=== PATIENT | female | born 1965 | race Two or more races ===

== ENCOUNTER 2017-04-30 07:26 | Emergency (ER) | payer MEDICARE ==
[~2017-04-30] VITALS: Ht 167.6 cm; Wt 68.0 kg
[~2017-04-30 07:26] MED LIST: ANTIBIOTIC; CYC10; CYCL-343 PO; IBU200; IBUP800T37 PO; NO ROUTINE MEDS
[2017-04-30] MEDS ORDERED: CALC600T63 PO (07:41)
[2017-04-30] MEDS ORDERED: DIPHTH/TETANUS/ACEL. PERTUSSIS IM ONLY ONE (07:45)
[2017-04-30] MEDS ORDERED: TETRACAIN/EPI/LIDO GEL 3ML SYR TP ONE (07:45)
--- NOTE | 2017-04-30 07:46 | ER Report ---
History and Physical Time Seen By MD: 07:39 Hx. of Stated Complaint: PT PRESENTS WITH KNOWN SEIZURE DISORDER. HAD A SEIZURE THIS AM AND FELL AGAINST BATHTUB . PT SUSTAINED A THRU AND THRU LAC, ABOVE R UPPER LIP , AND CONTUSION WITH SWELLING TO R CHEEK (CONNOR QUESADA MD) HPI/ROS CHIEF COMPLAINT:Seizure; facial injury HISTORY OF PRESENT ILLNESS: The patient is a 51-year-old female with past medical history significant for seizure disorder but not on any antiepileptic medication because she is "allergic to all of them". Patient's last seizure was approximately 1-2 months ago. She she did not medical attention at that time. Patient did sustain a laceration to the upper lip. Patient is also complaining of pain of the left upper extremity from the shoulder to the wrist. Complaining of some left foot pain. REVIEW OF SYSTEMS: Respiratory: No cough, no dyspnea. Cardiovascular: No chest pain, no palpitations. Gastrointestinal: No vomiting, no abdominal pain. Musculoskeletal: No back pain. (CONNOR QUESADA MD) Allergies: Coded Allergies: Penicillins (Verified Allergy, Unknown, HIVES, 04/30/17) Sulfa (Sulfonamide Antibiotics) (Verified Allergy, Unknown, 04/30/17) carbamazepine (Verified Allergy, Unknown, 04/30/17) divalproex sodium (Verified Allergy, Unknown, 04/30/17) felbamate (Verified Allergy, Unknown, 04/30/17) hydromorphone (Verified Allergy, Unknown, 04/30/17) lamotrigine (Verified Allergy, Unknown, 04/30/17) levetiracetam (Verified Allergy, Unknown, 04/30/17) morphine (Verified Allergy, Unknown, SEIZURES, 04/30/17) morphine sulfate (Verified Allergy, Unknown, 04/30/17) phenobarbital (Verified Allergy, Unknown, 04/30/17) phenytoin (Verified Allergy, Unknown, 04/30/17) tetracycline (Verified Allergy, Unknown, 04/30/17) topiramate (Verified Allergy, Unknown, 04/30/17) vancomycin (Verified Allergy, Unknown, 04/30/17) zonisamide (Verified Allergy, Unknown, 04/30/17) Uncoded Allergies: ALL SEIZURE MEDS (Allergy, Mild, 04/30/08) Home Meds Active Scripts Clindamycin Hcl (CLEOCIN HCL) 150 Mg Capsule, 150 MG PO TID, #21 CAPSULE Prov:DOMINGUEZ FERNANDEZ DO 04/30/17 Reported Medications Calcium Carbonate (CALCIUM) 600 Mg Tablet, 600 MG PO 04/30/17 Ibuprofen (IBUPROFEN) 800 Mg Tablet, 1 TAB PO Q6H 11/04/12 Discontinued Reported Medications Cyclobenzaprine Hcl (FLEXERIL) 10 Mg Tablet, 10 MG PO TID Y 11/04/12 Past Medical/Surgical History Patient has a past medical history of epilepsy, spurs in neck, arthritis, depression, anxiety. Patient has surgical history of occipital injections, hysterectomy, shoulder surgery. (CONNOR QUESADA MD) Hx Smoking: Yes (1/2 ppd) Smoking Status: Current: Every Day Smoker Hx Substance Use Disorder: No Hx Alcohol Use: No (CONNOR QUESADA MD) Constitutional Vital Sign - Last 24 Hours 04/30/17 04/30/17 04/30/17 04/30/17 07:32 07:35 07:56 08:22 Temp 98.9 Pulse 74 69 Resp 20 B/P (MAP) 110/72 (85) 110/72 109/64 (79) Pulse Ox 94 95 O2 Delivery Room Air 04/30/17 04/30/17 04/30/17 08:30 08:56 09:00 Pulse 68 B/P (MAP) 99/74 (82) 117/70 (86) Pulse Ox 98 (DOMINGUEZ FERNANDEZ DO) Physical Exam General Appearance: The patient is alert, has no immediate need for airway protection and no signs of toxicity. Eyes: Pupils equal and round no pallor or injection. No hyphema. ENT, Mouth: Mucous membranes are moist. Right-sided facial swelling. Dentition are all intact Respiratory: There are no retractions, lungs are clear to auscultation. Cardiovascular: Regular rate and rhythm. Gastrointestinal: Abdomen is soft and non tender, no masses, bowel sounds normal. Neurological: Postictal but becoming more awake and alert Skin: Warm and dry, no rashes. Laceration just to the right of the upper lip. Certainly 1.5 cm which will require primary repair Musculoskeletal: Neck is supple non tender. Extremities are nontender, nonswollen and have full range of motion. (CONNOR QUESADA MD) Medical Decision Making Data Points Result Diagram: 04/30/17 0800 Laboratory Hematology Test 04/30/17 08:00 Sodium Level 141 mmol/L (137-145) Potassium Level 4.1 mmol/L (3.5-5.0) Chloride Level 109 mmol/L (98-107) Carbon Dioxide Level 22 mmol/L (22-31) Blood Urea Nitrogen 12 mg/dl (7-18) Creatinine 0.90 mg/dl (0.52-1.04) Glomerular Filtration Rate Calc > 60.0 Random Glucose 93 mg/dl (75-110) Calcium Level 9.1 mg/dl (8.4-10.2) Chemistry Test 04/30/17 08:00 Glomerular Filtration Rate Calc > 60.0 Calcium Level 9.1 mg/dl (8.4-10.2) (DOMINGUEZ FERNANDEZ DO) EKG/Imaging Imaging No fx or dislocation of her imelda xrays. Ct of head is negative for bleed. Ct of cervical spine: arthritis C4--5 and c6-[address] with loss off curvature CT facial: TMJ arthropathy and facial contusion (DOMINGUEZ FERNANDEZ DO) ED Course/Re-evaluation Clinical Indication for ER IV: IV Access ED Course 04/30/2017 7:48:[address] the head, facial bones cervical spine. We will place let over the laceration. The laceration will require primary repair. Decision to Disposition Date: Apr 30, 2017 Decision to Disposition Time: 10:41 (CONNOR QUESADA MD) Clinical Indication for ER IV: IV Access ED Course Pt signed out to me by Dr. Quesada pending xray review and laceration repair. 04/30/2017 9:57:21 am Procedure: Laceration repair. Verbal consent was obtained from the patient. The 1.5cm laceration on the r upper lip above vertebral margin was anesthetized in the usual fashion 2% lido with epi 1ml. The wound was scrubbed, draped and explored to its base with a gloved finger. THe laceration was thru and thru due to a tooth. Interior and exterior was irrigated. Closed exterior with 6.0 ethlon interrupted sutures 4 total. There were no deep structures involved. The procedure was performed by myself. I did discuss closing the internal laceration but pt elected not to have it closed due to risk of infection due to oral cavity. will place on abx. 04/30/2017 10:11:46 am Pt looks like she is in pain but refusing all pain medications accept a dose of toradol. Will give toradol and clinda IV. Reviewed imaging. Pt is aware of her cervical and TMJ findings and states they are not new. Pt is sore but is comfortable going home. Has no new complaints. Decision to Disposition Date: Apr 30, 2017 Decision to Disposition Time: 10:13 (DOMINGUEZ FERNANDEZ DO) Depart Departure Latest Vital Signs Vital Signs Date Time Temp Pulse Resp B/P (MAP) Pulse Ox O2 Delivery O2 Flow Rate FiO2 04/30/17 09:00 117/70 (86) 04/30/17 08:56 68 98 04/30/17 07:35 98.9 20 Room Air (DOMINGUEZ FERNANDEZ DO) Impression: Primary Impression: Contusion of face Additional Impressions: Fall due to seizure Facial laceration Condition: Improved Disposition: HOME OR SELF-CARE New Scripts Clindamycin Hcl (CLEOCIN HCL) 150 Mg Capsule 150 MG PO TID, #21 CAPSULE Prov: DOMINGUEZ FERNANDEZ DO 04/30/17 Patient Instructions: Contusion in Adults (GEN), Facial Laceration (ED) Additional Instructions: You have 4 facial sutures which need to be removed in 7 days. You can take ibuprofen or tylenol as needed for pain. Your lip laceration is at risk of infection so we placed you on antibiotics. Clindamycin three times a day until finished. Follow up with your doctor. Return as needed Problem Qualifiers Primary Impression: Contusion of face Encounter type: initial encounter Qualified Codes: S00.83XA - Contusion of other part of head, initial encounter Additional Impressions: Facial laceration Encounter type: initial encounter Qualified Codes: S01.81XA - Laceration without foreign body of other part of head, initial encounter CONNOR QUESADA MD Apr 30, 2017 07:46 DOMINGUEZ FERNANDEZ DO Apr 30, 2017 10:01
--- NOTE | 2017-04-30 08:50 | RADIOLOGY IMAGING REPORT ---
FACILITY: [facility] - [place] PATIENT NAME: Ning Deshpande : 1965 MR: [id number] V: [id number] EXAM DATE: ORDERING PHYSICIAN: CONNOR CRAIG TECHNOLOGIST: Location: [facility] Patient: Ning Deshpande : 1965 Visit/Account:[id number] Date of Sevice: 04/30/2017 EXAMINATION: CT head without IV contrast HISTORY: Trauma. Seizure. COMPARISON: None. TECHNIQUE: Contiguous axial images were obtained from the skull base to the vertex without intraven ous contrast. Sagittal and coronal reformatted images are also submitted. One of the following dose optimization techniques was utilized in the performance of this exam: Autom ated exposure control; adjustment of the mA and/or kV according to the patient's size; or use of an i terative reconstruction technique. Specific details can be referenced in the facility's radiology C T exam operational policy. FINDINGS: Brain volume: Normal. Ventricles: Normal. Acute ischemic changes: None. Hemorrhage: No acute intracranial hemorrhage. Masses/edema: None. Hernandez-white: Negative. White matter: Normal. Vessels: Negative. Extra-axial: Negative. Calvarium/scalp: Negative. Skull base/visualized face: Soft tissue contusion of the right cheek. No acute fracture of the visua lized bones. Visualized sinuses/orbits: Negative. IMPRESSION: 1. No acute fracture, hemorrhage or intracranial mass lesion. No CT evidence of acute infarct. 2. Soft tissue contusion of the right cheek. Report Dictated By: Joanna Peralta MD at 04/30/2017 8:40 AM Report E-Signed By: Joanna Peralta MD at 04/30/2017 8:46 AM WSN:[id number]
--- NOTE | 2017-04-30 08:59 | RADIOLOGY IMAGING REPORT ---
FACILITY: [facility] PATIENT NAME: Ning Deshpande : 1965 MR: [id number] V: [id number] EXAM DATE: ORDERING PHYSICIAN: CONNOR CRAIG TECHNOLOGIST: Location: [facility] Patient: Ning Deshpande : 1965 Visit/Account:[id number] Date of Sevice: 04/30/2017 EXAMINATION: CT facial bones without IV contrast HISTORY: Trauma, seizure. COMPARISON: CT head from 04/30/2017. TECHNIQUE: Axial images were obtained from the superior aspect of the orbits through the inferior as pect of mandible. Coronal and sagittal reformatted images were obtained from the axial source data. N o IV contrast was administered. One of the following dose optimization techniques was utilized in the performance of this exam: Autom ated exposure control; adjustment of the mA and/or kV according to the patient's size; or use of an i terative reconstruction technique. Specific details can be referenced in the facility's radiology C T exam operational policy. FINDINGS: Soft Tissues: There is a soft tissue contusion of the right cheek. Mandible/TMJ: No acute fracture. There is severe joint space narrowing and bony spurring of both TMJs with a few small loose bodies in the left TMJ. Maxilla/pterygoid plates: Negative. Zygoma/zygomatic arches: Negative. Orbits: Negative. Nasal bones/nasal septum: Negative. Frontal bones: Negative. Sinuses: Negative. Visualized brain: Negative. IMPRESSION: 1. Soft tissue contusion of the right cheek without acute facial bone fracture. 2. Severe bilateral TMJ arthropathy with a few small loose bodies in the left TMJ. Report Dictated By: Joanna Peralta MD at 04/30/2017 8:46 AM Report E-Signed By: Joanna Peralta MD at 04/30/2017 8:56 AM WSN:[id number]
--- NOTE | 2017-04-30 09:13 | RADIOLOGY IMAGING REPORT ---
[place] [facility] [place]: Ning Deshpande : 1965 MR: [id number] V: [id number] EXAM DATE: ORDERING PHYSICIAN: CONNOR CRAIG TECHNOLOGIST: Location: [facility] Patient: Ning Deshpande : 1965 Visit/Account:[id number] Date of Sevice: 04/30/2017 EXAMINATION: CT cervical spine without IV contrast HISTORY: Trauma, seizure. COMPARISON: Cervical spine radiographs from 02/19/2016. TECHNIQUE: Axial images were obtained from the skull base through the upper thoracic spine without I V contrast administration. Coronal and sagittal reformatted images were obtained from the axial [facility] e data. One of the following dose optimization techniques was utilized in the performance of this exam: Autom ated exposure control; adjustment of the mA and/or kV according to the patient's size; or use of an i terative reconstruction technique. Specific details can be referenced in the facility's radiology C T exam operational policy. FINDINGS: Alignment: Straightening of the cervical spine without focal listhesis. Cranio-cervical junction: Negative. Vertebral bodies: Negative. Posterior elements: Negative. Hardware: None. Disc spaces: Mild disc space narrowing and endplate sclerosis from C4-5 through C6-7. Soft tissues: There is a soft tissue contusion of the right cheek partly visualized. Visualized upper chest: Negative. IMPRESSION: 1. No acute fracture of the cervical spine. 2. Mild degenerative disc disease from C4-5 through C6-7. 3. Straightening of the cervical spine could be positional, due to muscle spasm or a cervical collar. Report Dictated By: Joanna Peralta MD at 04/30/2017 9:06 AM Report E-Signed By: Joanna Peralta MD at 04/30/2017 9:08 AM WSN:[id number]
--- NOTE | 2017-04-30 09:46 | RADIOLOGY IMAGING REPORT ---
FACILITY: [facility] - [place] PATIENT NAME: Ning Deshpande : 1965 MR: [id number] V: [id number] EXAM DATE: ORDERING PHYSICIAN: CONNOR CRAIG TECHNOLOGIST: Location: [facility] [place] Patient: Ning Deshpande : 1965 Visit/Account:[id number] Date of Sevice: 04/30/2017 Two views left shoulder Indication: Fall Comparison: Unavailable Findings: Osseous alignment appears anatomic. No fracture or acute destructive osseous process. Minimal AC joselito int arthrosis. Limited views of the left upper lung zone are unremarkable. IMPRESSION: 1. No acute osseous abnormality left shoulder. Report Dictated By: Elier Potts MD at 04/30/2017 9:40 AM Report E-Signed By: Elier Potts MD at 04/30/2017 9:41 AM WSN:[email or web address]
--- NOTE | 2017-04-30 09:46 | RADIOLOGY IMAGING REPORT ---
FACILITY: [facility] PATIENT NAME: Ning Deshpande : 1965 MR: [id number] V: [id number] EXAM DATE: ORDERING PHYSICIAN: CONNOR CRAIG TECHNOLOGIST: Location: [facility] Patient: Ning Deshpande : 1965 Visit/Account:[id number] Date of Sevice: 04/30/2017 2 views left elbow Indication: Fall Comparison: None Available Findings: Osseous alignment is anatomic. No fracture or acute destructive osseous process. No effusion. IMPRESSION: 1. No acute osseous abnormality of the left elbow. Report Dictated By: Elier Potts MD at 04/30/2017 9:42 AM Report E-Signed By: Elier Potts MD at 04/30/2017 9:42 AM WSN:[email or web address]
--- NOTE | 2017-04-30 09:47 | RADIOLOGY IMAGING REPORT ---
FACILITY: [facility] - [place] PATIENT NAME: Ning Deshpande : 1965 MR: [id number] V: [id number] EXAM DATE: ORDERING PHYSICIAN: CONNOR CRAIG TECHNOLOGIST: Location: [facility] Patient: Ning Deshpande : 1965 Visit/Account:[id number] Date of Sevice: 04/30/2017 Left forearm Indication: Fall Comparison: None available Findings: Two views left forearm are submitted. Radius and ulna appear intact. No fracture or destructive oss eous process. Alignment appears anatomic. IMPRESSION: 1.No acute osseous abnormality left forearm Report Dictated By: Elier Potts MD at 04/30/2017 9:42 AM Report E-Signed By: Elier Potts MD at 04/30/2017 9:43 AM WSN:[email or web address]
--- NOTE | 2017-04-30 09:49 | RADIOLOGY IMAGING REPORT ---
FACILITY: [facility] PATIENT NAME: Ning Deshpande : 1965 MR: [id number] V: [id number] EXAM DATE: ORDERING PHYSICIAN: CONNOR CRAIG TECHNOLOGIST: Location: [facility] [place] Patient: Ning Deshpande : 1965 Visit/Account:[id number] Date of Sevice: 04/30/2017 Two views left wrist Indication: Fall Comparison: None Available. Findings: Distal radius and ulna are intact. Radiocarpal and intercarpal articulations appear within normal li mits. No fracture or destructive osseous process. IMPRESSION: 1. No acute osseous abnormality left wrist. Report Dictated By: Elier Potts MD at 04/30/2017 9:43 AM Report E-Signed By: Elier Potts MD at 04/30/2017 9:43 AM WSN:[email or web address]
--- NOTE | 2017-04-30 09:50 | RADIOLOGY IMAGING REPORT ---
FACILITY: [facility] PATIENT NAME: Ning Deshpande : 1965 MR: [id number] V: [id number] EXAM DATE: ORDERING PHYSICIAN: CONNOR CRAIG TECHNOLOGIST: Location: [facility] Patient: Ning Deshpande : 1965 Visit/Account:[id number] Date of Sevice: 04/30/2017 3 views left hand Indication: Seizure with fall Comparison: None Available. Findings: Distal radius and ulna appear intact. Radiocarpal and intercarpal articulations are within normal li mits. No evidence of acute fracture or destructive osseous process. No erosive articular change. IMPRESSION: 1.No acute osseous abnormality of the left hand Report Dictated By: Elier Potts MD at 04/30/2017 9:43 AM Report E-Signed By: Elier Potts MD at 04/30/2017 9:44 AM WSN:[email or web address]
--- NOTE | 2017-04-30 09:50 | RADIOLOGY IMAGING REPORT ---
FACILITY: [facility] [place] PATIENT NAME: Ning Deshpande : 1965 MR: [id number] V: [id number] EXAM DATE: ORDERING PHYSICIAN: CONNOR CRAIG TECHNOLOGIST: Location: [facility] Patient: Ning Deshpande : 1965 Visit/Account:[id number] Date of Sevice: 04/30/2017 FOOT 2 VIEW RIGHT Indication: Fall Comparison: None Available Findings: Two views of the right foot were obtained. Bony alignment appears anatomic. No fracture or acute destructive osseous process. No foreign body. IMPRESSION: 1.No acute osseous abnormality of the right foot Report Dictated By: Elier Potts MD at 04/30/2017 9:44 AM Report E-Signed By: Elier Potts MD at 04/30/2017 9:45 AM WSN:[email or web address]
[2017-04-30] MEDS ORDERED: CLINDAMYCIN(*) 600 MG/NS 50 ML 50 ML IVPB ONE (10:05)
[2017-04-30] MEDS ORDERED: KETOROLAC 30 MG/ML VIAL IVP ONE (10:10)
[2017-04-30] MEDS ORDERED: CLIN-60 PO (10:19)
[2017-04-30 10:30] VITALS: BP 109/71
== END 2017-04-30 10:48 | disposition home or self-care (01) ==
LOC: ER 07:43
DX: S01.511A Laceration without foreign body of lip, initial encounter (principal); S00.83XA Contusion of other part of head, initial encounter; R56.9 Unspecified convulsions
CPT/HCPCS: 12011; 70450; 70486; 72125; 73030; 73070; 73090; 73100; 73130; 73620; 90471; 90715; 96365; 96375; 99284; J1885; J3490; 82310; 82374; 82435; 82565; 82947; 84132; 84295; 84520

== ENCOUNTER → 2017-05-12 | Outpatient (CLI) | payer MEDICARE ==
[~2017-05-12] MED LIST changes: +CALC600T63 PO; +CLIN-60 PO
--- NOTE | 2017-05-12 11:08 | RADIOLOGY IMAGING REPORT ---
FACILITY: [facility] [place]IENT NAME: Ning Deshpande : 1965 MR: [id number] V: [id number] EXAM DATE: ORDERING PHYSICIAN: MITZY FAGAN TECHNOLOGIST: Location: [facility] [place] Patient: Ning Deshpande : 1965 Visit/Account:[id number] Date of Sevice: 05/12/2017 C SPINE W/O CONTRAST COMPARISON: None Additional pertinent history: Neck pain with cervicalgia Technique: Multiplanar multisequence cervical spine MRI was performed without gadolinium enhancement. FINDINGS: Vertebral body height and alignment: Reversal of normal cervical lordosis centered at C4-C5. Vertebral marrow signal: Type I degenerative endplate changes at C5-C6. Vertebral bodies: Anteriorly and posteriorly directed osteophytes in the lower cervical spine. Cervical spinal cord signal, craniocervical junction and visualized posterior fossa: Negative Surrounding soft tissues: Negative Inspection of the disc spaces reveal the following: C1-C2: Negative C2-C3: Minimal circumferential disc bulging with facet hypertrophic changes. No significant canal or neural foraminal narrowing. C3-C4: Posterior broad-based disc protrusion with facet hypertrophic changes. Moderate bilateral yari ral foraminal narrowing with mild canal stenosis. C4-C5: Posterior broad-based disc protrusion with facet and uncovertebral degenerative changes. Rachel re bilateral neural foraminal narrowing. Moderate canal stenosis. C5-C6: Posterior broad-based disc protrusion with a superimposed right neural foraminal disc extrusio n. Severe right-sided neural foraminal narrowing. Moderate left-sided neural foraminal narrowing. Moderate canal stenosis. C6-C7: Posterior broad-based disc protrusion with a superimposed left neural foraminal disc extrusion . Moderate left-sided neural foraminal narrowing. Mild right-sided neural foraminal narrowing. Mil d to moderate canal stenosis. C7-T1: Negative Impression: 1. Multilevel spondylitic change as discussed above. 2. Findings of moderate canal stenosis at C5-C6 and C4-C5 with moderate to severe bilateral neural f oraminal narrowing at both of these levels as well. Report Dictated By: Williams Silver MD at 05/12/2017 10:55 AM Report E-Signed By: Williams Silver MD at 05/12/2017 11:02 AM WSN:[id number]
== END ==
LOC: MRI 07:46
PROVIDERS: ATTEND Family Medicine
DX: M50.223 Other cervical disc displacement at C6-C7 level (principal); M48.02 Spinal stenosis, cervical region; M47.892 Other spondylosis, cervical region
CPT/HCPCS: 72141

== ENCOUNTER 2018-08-25 16:41 | Emergency (ER) | payer MEDICARE ==
--- NOTE | 2018-08-25 16:48 | ER Report ---
History and Physical Time Seen By MD: 17:08 HPI/ROS CHIEF COMPLAINT: Chest pain HISTORY OF PRESENT ILLNESS: This is a 52-year-old female presents to emergency department for chest pain. Patient states that around 3:10 this afternoon, she just woke up from a nap developed midsternal to left-sided anterior chest pain. Did radiate into her left arm. No nausea or vomiting. No diaphoresis. The pain did radiate through into her back as well. The pain has resolved upon arrival however does seem to increase her discomfort whenever she is moving. She has been seen and evaluated for this before, no concerning findings on previous visits. She also has a history of seizures, she does not take medications for it other than CBD oil. She denies injuries. She does smoke, unsure if she has elevated cholesterol. Patient also states that she had a similar occurrence about one week ago with the pain lasted approximately 2 hours, she did not come in for evaluation at that time. REVIEW OF SYSTEMS: Constitutional: No fever, no chills. Eyes: No discharge. ENT: No sore throat. Cardiovascular: As above. Respiratory: No cough, no shortness of breath. Gastrointestinal: No abdominal pain, no vomiting. Genitourinary: No hematuria. Musculoskeletal: No back pain. Skin: No rashes. Neurological: No headache. Allergies: Coded Allergies: Penicillins (Verified Allergy, Unknown, HIVES, 04/30/17) Sulfa (Sulfonamide Antibiotics) (Verified Allergy, Unknown, 04/30/17) carbamazepine (Verified Allergy, Unknown, 04/30/17) divalproex sodium (Verified Allergy, Unknown, 04/30/17) felbamate (Verified Allergy, Unknown, 04/30/17) hydromorphone (Verified Allergy, Unknown, 04/30/17) lamotrigine (Verified Allergy, Unknown, 04/30/17) levetiracetam (Verified Allergy, Unknown, 04/30/17) morphine (Verified Allergy, Unknown, SEIZURES, 04/30/17) morphine sulfate (Verified Allergy, Unknown, 04/30/17) phenobarbital (Verified Allergy, Unknown, 04/30/17) phenytoin (Verified Allergy, Unknown, 04/30/17) sulfamethoxazole (Verified Allergy, Unknown, 08/25/18) tetracycline (Verified Allergy, Unknown, 04/30/17) topiramate (Verified Allergy, Unknown, 04/30/17) trimethoprim (Verified Allergy, Unknown, 08/25/18) vancomycin (Verified Allergy, Unknown, 04/30/17) zonisamide (Verified Allergy, Unknown, 04/30/17) Uncoded Allergies: ALL SEIZURE MEDS (Allergy, Mild, 04/30/08) Home Meds Reported Medications Calcium Carbonate (CALCIUM) 600 Mg Tablet, 600 MG PO 04/30/17 Discontinued Reported Medications Ibuprofen (IBUPROFEN) 800 Mg Tablet, 1 TAB PO Q6H 11/04/12 Discontinued Scripts Clindamycin Hcl (CLEOCIN HCL) 150 Mg Capsule, 150 MG PO TID, #21 CAPSULE Prov:DOMINGUEZ FERNANDEZ V DO 04/30/17 Past Medical/Surgical History The patient has a past medical and surgical history of epilepsy, bone spurs and neck, arthritis and neck, wears glasses, history of depression, previous suicide attempts, occipital injections for headaches, hysterectomy, shoulder surgery. Reviewed Nurses Notes: Yes Hx Smoking: Yes (1/2 ppd) Smoking Status: Current: Every Day Smoker Hx Substance Use Disorder: No Hx Alcohol Use: No Constitutional Vital Sign - Last 24 Hours 08/25/18 08/25/18 08/25/18 08/25/18 16:44 16:48 16:56 17:00 Temp 97.4 Pulse 58 56 Resp 20 8 B/P (MAP) 121/71 (88) 121/71 113/75 (88) Pulse Ox 97 92 O2 Delivery Room Air 08/25/18 08/25/18 08/25/18 08/25/18 17:11 17:26 17:30 17:56 Pulse 73 57 64 Resp 10 16 12 B/P (MAP) 123/82 (96) Pulse Ox 97 93 94 08/25/18 08/25/18 08/25/18 08/25/18 18:00 18:11 18:26 18:31 Pulse 54 63 55 Resp 18 18 15 B/P (MAP) 109/81 (90) Pulse Ox 93 92 92 08/25/18 08/25/18 08/25/18 08/25/18 18:46 19:00 19:01 19:16 Pulse 51 48 53 Resp 11 18 15 B/P (MAP) 125/76 (92) Pulse Ox 95 94 93 5/28/08/25/18 08/25/18 08/25/18 19:30 19:31 19:46 20:00 Pulse 52 50 Resp 12 15 B/P (MAP) 117/71 (86) 114/80 (91) Pulse Ox 94 95 08/25/18 08/25/18 08/25/18 08/25/18 20:01 20:06 20:21 20:30 Pulse 46 49 52 Resp 13 20 12 B/P (MAP) 134/79 (97) Pulse Ox 95 95 95 08/25/18 08/25/18 08/25/18 08/25/18 20:36 20:51 21:00 21:06 Pulse 49 52 55 Resp 14 19 10 B/P (MAP) 116/78 (91) Pulse Ox 96 95 94 08/25/18 08/25/18 08/25/18 08/25/18 21:21 21:30 21:36 21:51 Pulse 61 61 53 Resp 17 11 9 B/P (MAP) 110/65 (80) Pulse Ox 95 91 97 08/25/18 08/25/18 08/25/18 08/25/18 21:56 22:00 22:11 22:26 Pulse 57 54 51 Resp 36 21 36 B/P (MAP) 123/74 (90) Pulse Ox 96 94 95 08/25/18 08/25/18 08/25/18 08/25/18 22:30 22:41 22:56 23:00 Pulse ??? 64 Resp 21 B/P (MAP) 135/84 (101) 117/63 (81) Pulse Ox 94 08/25/18 08/25/18 08/25/18 08/25/18 23:11 23:26 23:30 23:41 Pulse 58 54 62 Resp 16 0 21 B/P (MAP) 133/82 (99) Pulse Ox 95 95 90 08/25/18 08/26/18 08/26/18 23:46 00:00 00:01 Pulse 55 68 Resp 14 21 B/P (MAP) 127/85 (99) Pulse Ox 96 93 Intake and Output 08/25/18 08/25/18 08/26/18 15:00 23:00 07:00 Intake Total 709.6 ml Balance 709.6 ml Physical Exam General Appearance: The patient is alert, has no immediate need for airway protection and no signs of toxicity. Eyes: Pupils equal and round no pallor or injection. ENT, Mouth: Mucous membranes are moist. Respiratory: There are no retractions, lungs are clear to auscultation. Cardiovascular: Regular rate and rhythm. No murmurs, clicks or rubs. Gastrointestinal: Abdomen is soft and non tender, no masses, bowel sounds normal. Neurological: Alert and oriented 4. Moving all extremities. Following all commands. No focal neuro deficits per Skin: Warm and dry, no rashes. Musculoskeletal: Neck is supple non tender. Reproducible left anterior chest pain with palpation, no crepitus or deformities. Extremities are nontender, nonswollen and have full range of motion. DIFFERENTIAL DIAGNOSIS: After history and physical exam differential diagnosis was considered for chest pain including but not limited to myocardial ischemia, pericarditis pulmonary embolus, chest wall pain, pleural inflammation and pulmonary infectious causes. Medical Decision Making Data Points Result Diagram: 08/25/18 1657 08/25/18 1657 Laboratory Hematology Test 08/25/18 16:57 08/25/18 21:50 Red Blood Count 4.77 M/uL (4.17-5.56) Mean Corpuscular Volume 87.8 fL (80.0-96.0) Mean Corpuscular Hemoglobin 30.0 pg (26.0-33.0) Mean Corpuscular Hemoglobin Concent 34.2 g/dL (32.0-36.0) Red Cell Distribution Width 13.5 % (11.5-14.5) Mean Platelet Volume 7.8 fL (7.2-11.1) Neutrophils (%) (Auto) 54.3 % (39.4-72.5) Lymphocytes (%) (Auto) 34.7 % (17.6-49.6) Monocytes (%) (Auto) 8.3 % (4.1-12.4) Eosinophils (%) (Auto) 2.2 % (0.4-6.7) Basophils (%) (Auto) 0.5 % (0.3-1.4) Nucleated RBC Relative Count (auto) 0.0 /100WBC Neutrophils # (Auto) 3.8 K/uL (2.0-7.4) Lymphocytes # (Auto) 2.4 K/uL (1.3-3.6) Monocytes # (Auto) 0.6 K/uL (0.3-1.0) Eosinophils # (Auto) 0.2 K/uL (0.0-0.5) Basophils # (Auto) 0.0 K/uL (0.0-0.1) Nucleated RBC Absolute Count (auto) 0.00 K/uL D-Dimer Quantitative (PE/DVT) < 0.27 ug/ml (0-0.50) Sodium Level 141 mmol/L (137-145) Potassium Level 3.8 mmol/L (3.5-5.0) Chloride Level 108 mmol/L (98-107) Carbon Dioxide Level 26 mmol/L (22-31) Blood Urea Nitrogen 11 mg/dl (7-18) Creatinine 1.10 mg/dl (0.52-1.04) Glomerular Filtration Rate Calc 52.4 Random Glucose 92 mg/dl (75-110) Calcium Level 9.2 mg/dl (8.4-10.2) Total Bilirubin < 0.1 mg/dl (0.2-1.3) Aspartate Amino Transf (AST/SGOT) 26 U/L (0-35) Alanine Aminotransferase (ALT/SGPT) 22 U/L (0-56) Alkaline Phosphatase 96 U/L (0-126) Total Protein 7.1 g/dl (6.3-8.2) Albumin 4.0 g/dl (3.5-5.0) Troponin I 0.152 ng/ml Chemistry Test 08/25/18 16:57 08/25/18 21:50 White Blood Count 7.0 k/uL (4.5-11.0) Red Blood Count 4.77 M/uL (4.17-5.56) Hemoglobin 14.3 g/dL (12.0-16.0) Hematocrit 41.8 % (34.0-47.0) Mean Corpuscular Volume 87.8 fL (80.0-96.0) Mean Corpuscular Hemoglobin 30.0 pg (26.0-33.0) Mean Corpuscular Hemoglobin Concent 34.2 g/dL (32.0-36.0) Red Cell Distribution Width 13.5 % (11.5-14.5) Platelet Count 264 K/uL (150-450) Mean Platelet Volume 7.8 fL (7.2-11.1) Neutrophils (%) (Auto) 54.3 % (39.4-72.5) Lymphocytes (%) (Auto) 34.7 % (17.6-49.6) Monocytes (%) (Auto) 8.3 % (4.1-12.4) Eosinophils (%) (Auto) 2.2 % (0.4-6.7) Basophils (%) (Auto) 0.5 % (0.3-1.4) Nucleated RBC Relative Count (auto) 0.0 /100WBC Neutrophils # (Auto) 3.8 K/uL (2.0-7.4) Lymphocytes # (Auto) 2.4 K/uL (1.3-3.6) Monocytes # (Auto) 0.6 K/uL (0.3-1.0) Eosinophils # (Auto) 0.2 K/uL (0.0-0.5) Basophils # (Auto) 0.0 K/uL (0.0-0.1) Nucleated RBC Absolute Count (auto) 0.00 K/uL D-Dimer Quantitative (PE/DVT) < 0.27 ug/ml (0-0.50) Glomerular Filtration Rate Calc 52.4 Calcium Level 9.2 mg/dl (8.4-10.2) Total Bilirubin < 0.1 mg/dl (0.2-1.3) Aspartate Amino Transf (AST/SGOT) 26 U/L (0-35) Alanine Aminotransferase (ALT/SGPT) 22 U/L (0-56) Alkaline Phosphatase 96 U/L (0-126) Total Protein 7.1 g/dl (6.3-8.2) Albumin 4.0 g/dl (3.5-5.0) Troponin I 0.152 ng/ml Coagulation Test 08/25/18 16:57 D-Dimer Quantitative (PE/DVT) < 0.27 ug/ml EKG/Imaging EKG Interpretation 12 lead EKG: Time of EKG 1644. Rhythm: Normal sinus rhythm, ventricular rate 65 bpm. Allen: normal QRS: normal ST segments: No ST depression or elevation identified, inverted T waves noted in V1 and V2. When compared to the 01/24/2017 EKG, previous EKG showing inverted T waves in V1 and V2, current EKG showing normal flexion of V1 and V2. 12 lead EKG: Time of EKG 2245. Rhythm: Sinus bradycardia, ventricular rate 50 bpm. Allen: normal QRS: normal ST segments: No ST depression or elevation identified. No changes from the earlier EKG. Imaging PATIENT NAME: Ning Deshpande : 1965 MR: [id number] V: [id number] EXAM DATE: ORDERING PHYSICIAN: LONNY DELUNA TECHNOLOGIST: Location: [facility] [place] Patient: Ning Deshpande : 1965 Visit/Account:[id number] Date of Sevice: 08/25/2018 Exam type: CHEST PA LAT History: Chest pain x1 week with tingling of left arm Comparison: January 24, 2017. Findings: The lungs are free of acute effusions infiltrates or edema. There is a vague area of increased density projecting over the right pulmonary apex. This may represent superimposed shadows from the overlapping ribs although pulmonary nodule not totally excluded. The cardiac silhouette is normal in size. Visualized bones are unremarkable for age IMPRESSION: 1. No evidence of acute pulmonary consolidation Small vague area of increased density projects over the right pulmonary apex. This may represent a superimposed shadow from the overlapping ribs although pulmonary nodule not totally excluded. Depending upon the clinical presentation a short-term follow-up chest or chest CT may be helpful Report Dictated By: Mere Franklin MD at 08/25/2018 6:05 PM Report E-Signed By: Mere Franklin MD at 08/25/2018 6:07 PM WSN:[email or web address] ED Course/Re-evaluation Clinical Indication for ER IV: Hydration, IV Access ED Course The patient was admitted to room. A history and physical were obtained. Differential diagnoses were considered. An IV was started. A CBC, CMP were obtained. Laboratory studies unremarkable, negative troponin. EKG showing normal sinus rhythm, noted to have inverted T waves on V1 and V2, similar to the previous EKG also noted on the current EKG is positive deflection T waves whereas in the previous EKGs on file she had a negative deflexion T-wave otherwise unremarkable. Negative two-view chest x-ray. The 3rd troponin came back positive at 0.152, I did update the patient as noted below. I did [place] [facility] [place] in the [place], patient was given heparin bolus and started on a heparin drip. 08/25/2018 6:41:11 pm I did review the negative laboratory studies, negative troponin and negative d-dimer with the patient as well as the negative chest x- ray. I did recommend a repeat troponin, patient is agreeable. 08/25/2018 8:41:03 pm Repeat tests troponin did increase to 0.084, in the indeterminate range, I did review this with the patient I did recommend a repeat in another hour, patient is agreeable. Patient continues to remain pain-free. 08/25/2018 10:35:39 pm the repeat troponin did come back elevated again at 0.152 the patient was updated, I did tell her with the elevated troponin, that an NSTEMI is likely and transferring to an acute care hospital that has interventional cardiology as recommended, patient was agreeable. [facility] [place] was contacted. 08/25/2018 10:48:01 pm I did speak with [place] [facility] [place] Decision to Disposition Date: August 25, 2018 Decision to Disposition Time: 22:47 Depart Departure Latest Vital Signs Vital Signs Date Time Temp Pulse Resp B/P (MAP) Pulse Ox O2 Delivery O2 Flow Rate FiO2 08/26/18 00:01 68 21 93 08/26/18 00:00 127/85 (99) 08/25/18 16:48 97.4 Room Air Impression: Primary Impression: Non-STEMI (non-ST elevated myocardial infarction) Additional Impression: Elevated troponin Condition: Improved Disposition: XFER [place] [place] [place] Problem Qualifiers LONNY DELUNA SCHOOL OFFICE ASSISTANT-BC August 25, 2018 16:48
[2018-08-25] MEDS ORDERED: ASPIRIN 81 MG CHEW CHEW ONE (17:00)
[2018-08-25 17:12] LABS: PLATELET COUNT, AUTOMATED 264 K/uL (150-450)
--- NOTE | 2018-08-25 18:11 | RADIOLOGY IMAGING REPORT ---
[place] [facility] [place]IENT NAME: Ning Deshpande : 1965 MR: [id number] V: [id number] EXAM DATE: ORDERING PHYSICIAN: LONNY DELUNA TECHNOLOGIST: Location: [facility] Patient: Ning Deshpande : 1965 Visit/Account:[id number] Date of Sevice: 08/25/2018 Exam type: CHEST PA LAT History: Chest pain x1 week with tingling of left arm Comparison: January 24, 2017. Findings: The lungs are free of acute effusions infiltrates or edema. There is a vague area of increased densi ty projecting over the right pulmonary apex. This may represent superimposed shadows from the overla pping ribs although pulmonary nodule not totally excluded. The cardiac silhouette is normal in size. Visualized bones are unremarkable for age IMPRESSION: 1. No evidence of acute pulmonary consolidation Small vague area of increased density projects over the right pulmonary apex. This may represent a s uperimposed shadow from the overlapping ribs although pulmonary nodule not totally excluded. Dependi ng upon the clinical presentation a short-term follow-up chest or chest CT may be helpful Report Dictated By: Mere Franklin MD at 08/25/2018 6:05 PM Report E-Signed By: Mere Franklin MD at 08/25/2018 6:07 PM WSN:[email or web address]
--- NOTE | 2018-08-25 18:22 | EKG ---
FACILITY: [facility] PATIENT NAME: BAILEE HOLCOMB : [id number] MR: [id number] V: [id number] EXAM DATE: ORDERING PHYSICIAN: LONNY DELUNA TECHNOLOGIST: ALESSNADRA Galvan Reason : CP Blood Pressure : / mmHG Vent. Rate : 065 BPM Atrial Rate : 065 BPM P-R Int : 120 ms QRS Dur : 086 ms QT Int : 416 ms P-R-T Axes : 078 080 076 degrees QTc Int : 432 ms Normal sinus rhythm Normal ECG When compared with ECG of 24-JAN-2017 22:05, No significant change was found Confirmed by DEACON ORELLANA ([id number]) on 08/25/2018 10:29:48 PM Referred By: LORENZO Confirmed By:DEACON ORELLANA
[2018-08-25] MEDS ORDERED: HEPARIN SOD/D5W 25000/250 ML 250 ML IV ONE ×3 (22:51→23:20)
[2018-08-25] MEDS ORDERED: HEPARIN (PORC) 5000 UN/ML VIAL IVP ONE (22:55)
--- NOTE | 2018-08-25 23:29 | EKG ---
FACILITY: [facility] - [place], [place] PATIENT NAME: BAILEE HOLCOMB : [id number] MR: [id number] V: [id number] EXAM DATE: ORDERING PHYSICIAN: LONNY DELUNA TECHNOLOGIST: DEBBIE Galvan Reason : REPEAT EKG Blood Pressure : / mmHG Vent. Rate : 050 BPM Atrial Rate : 050 BPM P-R Int : 126 ms QRS Dur : 086 ms QT Int : 414 ms P-R-T Axes : 082 078 076 degrees QTc Int : 377 ms Sinus bradycardia No acute appearing changes When compared with ECG of 25-AUG-2018 16:44, No significant change was found Confirmed by OLMAN VASQUEZ ([id number]) on 08/26/2018 10:46:23 AM Referred By: Confirmed By:OLMAN VASQUEZ
[2018-08-26] VITALS: BP 127/85
[2018-08-26] MEDS ORDERED: NS(*) 0.9% 1000 ML BAG 1,000 ML IV ONE (01:30)
== END 2018-08-26 00:32 | disposition short-term general hospital (02) ==
LOC: ER 17:02
DX: I21.4 Non-ST elevation (NSTEMI) myocardial infarction (principal); R79.89 Other specified abnormal findings of blood chemistry
CPT/HCPCS: 71046; 84484; 85025; 85379; 93005; 96361; 96365; 96366; 96375; 99285; A9270; J1644; J7030; 82040; 82247; 82310; 82374; 82435; 82565; 82947; 84075; 84132; 84155; 84295; 84450; 84460; 84520

== ENCOUNTER → 2018-08-26 | Outpatient (CLI) | payer MEDICARE | LOC: AMB 00:20 | PROVIDERS: ATTEND Nurse Practitioner | DX: I21.4 Non-ST elevation (NSTEMI) myocardial infarction (principal) | CPT/HCPCS: A0425; A0426 ==

== ENCOUNTER 2018-09-14 05:23 | Emergency (ER) | payer MEDICARE ==
[2018-09-14] MEDS ORDERED: CALC-476 PO (05:55)
[2018-09-14] MEDS ORDERED: LISI5TAB25 PO (05:55)
[2018-09-14] MEDS ORDERED: ALBU8.5H IH (05:55)
[2018-09-14] MEDS ORDERED: INUL1TAB (05:55)
[2018-09-14] MEDS ORDERED: SENN-192 PO (05:55)
[2018-09-14] MEDS ORDERED: ATOR40TA24 PO (05:55)
[2018-09-14] MEDS ORDERED: POTA99TA6 PO (05:55)
[2018-09-14] MEDS ORDERED: TICA90TA PO (05:55)
[2018-09-14] MEDS ORDERED: NITR0.4T3 SL (05:55)
[2018-09-14] MEDS ORDERED: MV,C400T (05:55)
[2018-09-14] MEDS ORDERED: ASPI81TA94 PO (05:55)
--- NOTE | 2018-09-14 06:04 | ER Report ---
History and Physical Time Seen By MD: 06:03 Hx. of Stated Complaint: ABD. PAIN AND BACK PAIN, HASN'T HAD A BOWEL MOVEMENT SINCE FRI.; STATES SHE TOOK A SUPPOSITORY AND HAS NOT HAD RELIFE (LUIS ENRIQUE VENTURA MD) HPI/ROS CHIEF COMPLAINT: constipation HISTORY OF PRESENT ILLNESS: This is a 52 year old female. She has not had a bowel movement for the last 5 days, since last Friday. She tried a suppository at home, with only 3 small pieces of stool passing. She is having abdominal fullness and discomfort, pain worse in the epigastric area. Had an episode of emesis at home. Did try drinking prune juice and apple juice yesterday, without relief. Never had a problem like this in the past, has had mild episodes of constipation in the past. No blood in stools or dark black stools. No trouble with urination. No fevers or chills. (LUIS ENRIQUE VENTURA MD) Allergies: Coded Allergies: Penicillins (Verified Allergy, Unknown, HIVES, 04/30/17) Sulfa (Sulfonamide Antibiotics) (Verified Allergy, Unknown, 04/30/17) carbamazepine (Verified Allergy, Unknown, 04/30/17) divalproex sodium (Verified Allergy, Unknown, 04/30/17) felbamate (Verified Allergy, Unknown, 04/30/17) hydromorphone (Verified Allergy, Unknown, 04/30/17) lamotrigine (Verified Allergy, Unknown, 04/30/17) levetiracetam (Verified Allergy, Unknown, 04/30/17) morphine (Verified Allergy, Unknown, SEIZURES, 04/30/17) morphine sulfate (Verified Allergy, Unknown, 04/30/17) phenobarbital (Verified Allergy, Unknown, 04/30/17) phenytoin (Verified Allergy, Unknown, 04/30/17) sulfamethoxazole (Verified Allergy, Unknown, 08/25/18) tetracycline (Verified Allergy, Unknown, 04/30/17) topiramate (Verified Allergy, Unknown, 04/30/17) trimethoprim (Verified Allergy, Unknown, 08/25/18) vancomycin (Verified Allergy, Unknown, 04/30/17) zonisamide (Verified Allergy, Unknown, 04/30/17) Uncoded Allergies: ALL SEIZURE MEDS (Allergy, Mild, 04/30/08) Home Meds Active Scripts Polyethylene Glycol 3350 (MIRALAX) 17 Gm Powd.pack, 17 GM PO BID for 7 Days, #60 PKT Prov:BEVERLY DURAN MD 09/14/18 Reported Medications Mv,Ca,Min/Fa/Herbal Comp #223 (ESTROVEN MOOD & MEMORY CAPLET) 400 Mcg Tablet 09/14/18 Ca/D3/Mag#11/Zinc/Neck Band Setter/Myke/Bor (CALTRATE 600+D PLUS TABLET) 1 Each Tablet, 1 EACH PO 09/14/18 Potassium Gluconate (POTASSIUM) 99 Mg Tablet, 99 MG PO 09/14/18 Sennosides (VEGETABLE LAXATIVE) 8.6 Mg Tablet, 8.6 MG PO 09/14/18 Inulin/Chromium Picolinate (Fiber Gummies) 1 Each Tab.chew, 5 GM 09/14/18 Aspirin (ASPIRIN) 81 Mg Tab.chew, 81 MG PO QDAY, TAB.CHEW 09/14/18 Albuterol Sulfate 90 Mcg/Act (PROAIR HFA 90 MCG/ACT) 8.5 Gm Hfa.aer.ad, 1-2 PUFF IH 3-4XD, INHALER 09/14/18 Nitroglycerin (NITROGLYCERIN) 0.4 Mg Tab.subl, 0.4 MG SL Q5MIN 09/14/18 Ticagrelor (BRILINTA) 90 Mg Tablet, 90 MG PO 09/14/18 Atorvastatin Calcium (LIPITOR) 40 Mg Tablet, 2 TAB PO QDAY, TAB 09/14/18 Lisinopril (LISINOPRIL) 5 Mg Tablet, 2.5 MG PO QDAY, TAB 09/14/18 Calcium Carbonate (CALCIUM) 600 Mg Tablet, 600 MG PO 04/30/17 Past Medical/Surgical History Epilepsy, coronary artery disease with history of stents, arthritis, depression, history of shoulder surgery, hysterectomy (LUIS ENRIQUE VENTURA MD) Reviewed Nurses Notes: Yes (LUIS ENRIQUE VENTURA MD) Hx Smoking: Yes (1/2 ppd) Smoking Status: Current: Every Day Smoker Hx Substance Use Disorder: No Hx Alcohol Use: No (LUIS ENRIQUE VENTURA MD) Constitutional Vital Sign - Last 24 Hours 09/14/18 09/14/18 09/14/18 09/14/18 05:29 05:30 06:00 07:00 Temp 97.5 Pulse 74 61 54 Resp 18 20 19 B/P (MAP) 120/96 120/96 (104) 108/66 (80) 105/76 (86) Pulse Ox 97 92 95 O2 Delivery Room Air (BEVERLY DURAN MD) Physical Exam General Appearance: The patient is alert, has no immediate need for airway protection and no current signs of toxicity. Eyes: Pupils equal and round no injection. ENT: Normal oral mucosa. Moist mucous membranes. Respiratory: Lungs are clear to auscultation. Cardiac: regular rate and rhythm with good peripheral perfusion Gastrointestinal: Abdomen is soft, some discomfort in the epigastric area and a little bit down in the suprapubic and left lower quadrants, hypoactive bowel sounds. Nondistended DIFFERENTIAL DIAGNOSIS: After history and physical exam differential diagnosis was considered for problem with bowel movements, likely constipation, but will need to rule out other possible causes as well such as obstructive processes (LUIS ENRIQUE VENTURA MD) Medical Decision Making Data Points Result Diagram: 09/14/18 0551 09/14/18 0551 Laboratory Hematology Test 09/14/18 05:51 09/14/18 08:08 Red Blood Count 4.77 M/uL (4.17-5.56) Mean Corpuscular Volume 88.0 fL (80.0-96.0) Mean Corpuscular Hemoglobin 30.2 pg (26.0-33.0) Mean Corpuscular Hemoglobin Concent 34.3 g/dL (32.0-36.0) Red Cell Distribution Width 13.4 % (11.5-14.5) Mean Platelet Volume 8.4 fL (7.2-11.1) Neutrophils (%) (Auto) 66.3 % (39.4-72.5) Lymphocytes (%) (Auto) 23.0 % (17.6-49.6) Monocytes (%) (Auto) 8.6 % (4.1-12.4) Eosinophils (%) (Auto) 1.2 % (0.4-6.7) Basophils (%) (Auto) 0.9 % (0.3-1.4) Nucleated RBC Relative Count (auto) 0.0 /100WBC Neutrophils # (Auto) 5.5 K/uL (2.0-7.4) Lymphocytes # (Auto) 1.9 K/uL (1.3-3.6) Monocytes # (Auto) 0.7 K/uL (0.3-1.0) Eosinophils # (Auto) 0.1 K/uL (0.0-0.5) Basophils # (Auto) 0.1 K/uL (0.0-0.1) Nucleated RBC Absolute Count (auto) 0.00 K/uL Sodium Level 141 mmol/L (137-145) Potassium Level 4.1 mmol/L (3.5-5.0) Chloride Level 107 mmol/L (98-107) Carbon Dioxide Level 22 mmol/L (22-31) Blood Urea Nitrogen 16 mg/dl (7-18) Creatinine 0.90 mg/dl (0.52-1.04) Glomerular Filtration Rate Calc > 60.0 Random Glucose 103 mg/dl (75-110) Calcium Level 9.6 mg/dl (8.4-10.2) Total Bilirubin 0.3 mg/dl (0.2-1.3) Aspartate Amino Transf (AST/SGOT) 38 U/L (0-35) Alanine Aminotransferase (ALT/SGPT) 40 U/L (0-56) Alkaline Phosphatase 120 U/L (0-126) Total Protein 7.6 g/dl (6.3-8.2) Albumin 4.3 g/dl (3.5-5.0) Amylase Level 99 U/L (0-110) Lipase 138 U/L (23-300) Chemistry Test 09/14/18 05:51 09/14/18 08:08 White Blood Count 8.3 k/uL (4.5-11.0) Red Blood Count 4.77 M/uL (4.17-5.56) Hemoglobin 14.4 g/dL (12.0-16.0) Hematocrit 42.0 % (34.0-47.0) Mean Corpuscular Volume 88.0 fL (80.0-96.0) Mean Corpuscular Hemoglobin 30.2 pg (26.0-33.0) Mean Corpuscular Hemoglobin Concent 34.3 g/dL (32.0-36.0) Red Cell Distribution Width 13.4 % (11.5-14.5) Platelet Count 248 K/uL (150-450) Mean Platelet Volume 8.4 fL (7.2-11.1) Neutrophils (%) (Auto) 66.3 % (39.4-72.5) Lymphocytes (%) (Auto) 23.0 % (17.6-49.6) Monocytes (%) (Auto) 8.6 % (4.1-12.4) Eosinophils (%) (Auto) 1.2 % (0.4-6.7) Basophils (%) (Auto) 0.9 % (0.3-1.4) Nucleated RBC Relative Count (auto) 0.0 /100WBC Neutrophils # (Auto) 5.5 K/uL (2.0-7.4) Lymphocytes # (Auto) 1.9 K/uL (1.3-3.6) Monocytes # (Auto) 0.7 K/uL (0.3-1.0) Eosinophils # (Auto) 0.1 K/uL (0.0-0.5) Basophils # (Auto) 0.1 K/uL (0.0-0.1) Nucleated RBC Absolute Count (auto) 0.00 K/uL Glomerular Filtration Rate Calc > 60.0 Calcium Level 9.6 mg/dl (8.4-10.2) Total Bilirubin 0.3 mg/dl (0.2-1.3) Aspartate Amino Transf (AST/SGOT) 38 U/L (0-35) Alanine Aminotransferase (ALT/SGPT) 40 U/L (0-56) Alkaline Phosphatase 120 U/L (0-126) Total Protein 7.6 g/dl (6.3-8.2) Albumin 4.3 g/dl (3.5-5.0) Amylase Level 99 U/L (0-110) Lipase 138 U/L (23-300) Urinalysis Test 09/14/18 08:08 (BEVERLY DURAN MD) ED Course/Re-evaluation ED Course ED clinical course this is a 52-year-old female comes in with constipation x- rays showed questionable air-fluid level CT scan follow-up showed no abnormality full radiology read on both was negative for constipation small bowel obstruction or ileus patient will be discharge diagnosis constipation and put on laxatives primary care follow-up Decision to Disposition Date: Sep 14, 2018 Decision to Disposition Time: 08:24 (BEVERLY DURAN MD) Depart Departure Latest Vital Signs Vital Signs Date Time Temp Pulse Resp B/P (MAP) Pulse Ox O2 Delivery O2 Flow Rate FiO2 09/14/18 07:00 54 19 105/76 (86) 95 09/14/18 05:29 97.5 Room Air (BEVERLY DURAN MD) Impression: Primary Impression: Constipation Condition: Improved Disposition: HOME OR SELF-CARE Referrals: MITZY FAGAN DO (PCP) 5 Days New Scripts Polyethylene Glycol 3350 (MIRALAX) 17 Gm Powd.pack 17 GM PO BID for 7 Days, #60 PKT Prov: BEVERLY DURAN MD 09/14/18 Patient Instructions: Constipation (DC) LUIS ENRIQUE VENTURA MD Sep 14, 2018 06:04 BEVERLY DURAN MD Sep 14, 2018 08:26
[2018-09-14] MEDS ORDERED: NS(*) 0.9% 1000 ML BAG 1,000 ML IV ONE (06:55)
[2018-09-14] MEDS ORDERED: ONDANSETRON 4 MG/2 ML VIAL IVP ONE (06:55)
--- NOTE | 2018-09-14 07:02 | RADIOLOGY IMAGING REPORT ---
FACILITY: [facility] PATIENT NAME: Ning Deshpande : 1965 MR: [id number] V: [id number] EXAM DATE: ORDERING PHYSICIAN: LUIS ENRIQUE VENTURA TECHNOLOGIST: [place] [facility] [place]ing Deshpande : 1965 Visit/Account:[id number] Date of Sevice: 09/14/2018 Exam type: ACUTE ABDOMEN SERIES 3 VIEW INDICATION: Constipation. COMPARISON: Unavailable FINDINGS: Heart size within normal limits. There is no focal infiltrate or consolidation. No evidence of pneumothorax or pleural effusion. Bowel gas seen throughout the abdomen in a nonobstructive pattern. No dilated loops of small bowel id entified. There is mild gaseous distention of colon with colonic air-fluid levels. No significant sto ol burden. There are no pathologic calcifications identified. No evidence of free air under the right hemidiaphragm. IMPRESSION: 1. No acute cardiopulmonary process. 2. No significant stool burden. 3. Mild nonspecific gaseous distention of colon with colonic air-fluid levels. Report Dictated By: Justin Huang MD at 09/14/2018 6:55 AM Report E-Signed By: Justin Huang MD at 09/14/2018 6:57 AM WSN:[id number]
[2018-09-14 07:08] LABS: PLATELET COUNT, AUTOMATED 248 K/uL (150-450)
[2018-09-14] MEDS ORDERED: IOPAMIDOL 76% 100 ML INFUS BTL 100 ML ONE (07:09)
--- NOTE | 2018-09-14 07:57 | RADIOLOGY IMAGING REPORT ---
FACILITY: [facility] PATIENT NAME: Ning Deshpande : 1965 MR: [id number] V: [id number] EXAM DATE: ORDERING PHYSICIAN: LUIS ENRIQUE VENTURA TECHNOLOGIST: Location: [facility] Patient: Ning Deshpande : 1965 Visit/Account:[id number] Date of Sevice: 09/14/2018 CT ABDOMEN PELVIS W/ CON Additional pertinent History: none significant TECHNIQUE: Spiral scan was through the abdomen and pelvis during injection of nonionic iodinated in travenous contrast. Contrast: 75 mL of IV Isovue-[id number]. One of the following dose optimization techniques was utilized in the performance of this exam: Automated exposure control; adjustment of the mA and/or kV according t o the patient's size; or use of an iterative reconstruction technique. Specific details can be refe renced in the facility's radiology CT exam operational policy. COMPARISON STUDIES: none. FINDINGS: Liver / biliary: Homogenous attenuation to the liver. Small hypoattenuated 4 mm lesion in the medial segment left lobe of liver too small to characterize but likely representing a small cyst. Gallbladde r without gallstones. Pancreas: negative Spleen: negative Adrenal glands: negative Kidneys / retroperitoneum: No renal stones or renal obstructive uropathy change. Small 4 mm hypoatten uated lesion in the posterior aspect of the right kidney likely representing a small cyst. Pelvic structures: Status post hysterectomy. No free fluid Bowel / peritoneum / mesenteries: No colonic mass lesion. No inflammation. Appendix normal with no ev idence of appendicitis. Vessels: Minimal atherosclerotic disease within the abdominal aorta and common iliac arteries. Musculoskeletal / Body wall: negative Lymph node assessment: negative Lower chest: negative IMPRESSION: 1. Negative CT scan of the abdomen/pelvis for acute pathology. Report Dictated By: Cachorro Gonzalez MD at 09/14/2018 7:44 AM Report E-Signed By: Cachorro Gonzalez MD at 09/14/2018 7:51 AM WSN:[id number]
[2018-09-14] MEDS ORDERED: POLY17PO25 PO (08:26)
[2018-09-14 08:30] VITALS: BP 94/66
== END 2018-09-14 08:36 | disposition home or self-care (01) ==
LOC: ER 05:51
DX: K59.00 Constipation, unspecified (principal)
CPT/HCPCS: 74022; 74177; 81001; 82150; 83690; 85025; 96361; 96374; 99284; J2405; J7030; Q9967; 82040; 82247; 82310; 82374; 82435; 82565; 82947; 84075; 84132; 84155; 84295; 84450; 84460; 84520